=== PATIENT | male | born 1940 | race Caucasian/White ===

== ENCOUNTER 2022-10-12 19:59 | Inpatient (IN) | payer MEDICARE ==
[~2022-10-12] VITALS: Ht 177.8 cm; Wt 80.3 kg
[2022-10-12 20:57] LABS: BASOPHILS # (AUTO) 0.1 (0.0-0.1); BASOPHILS % 0.9 % (0.0-1.0); EOSINOPHILS # (AUTO) 0.2 (0.0-0.4); EOSINOPHILS % 2.6 % (0.0-6.0); HEMATOCRIT 41.9 % (38.2-49.6); LYMPHOCYTES # (AUTO) 1.5 (1.0-3.2); LYMPHOCYTES % 18.8 % (18.0-39.1); MEAN CORPUSCULAR HEMOGLOBIN 32.5 pg (28-32); MEAN CORPUSCULAR HGB CONC 33.4 g/dL (31-35); MEAN CORPUSCULAR VOLUME 97.2 fL (81-99); MONOCYTES % 12.5 % (4.4-11.3); NEUTROPHILS % 64.4 % (38.7-80.0); PLATELET COUNT 199 x10e3/uL (140-360); RED BLOOD COUNT 4.31 x10e6/uL (4.3-5.7); RED CELL DISTRIBUTION WIDTH 13.7 % (11.7-14.4)
[2022-10-12 21:06] LABS: INR 0.88; PROTHROMBIN TIME 12.4 seconds (11.9-14.5)
[2022-10-12 21:07] LABS: PARTIAL THROMBOPLASTIN TIME 31.3 seconds (23.8-35.5)
[2022-10-12 21:15] LABS: ALBUMIN 3.8 g/dL (3.5-5.0); ALBUMIN/GLOBULIN RATIO 1.3 (0.8-2.0); ANION GAP 15.3 mmol/L (8-16); CALCIUM 8.6 mg/dL (8.4-10.2); CREATININE, SERUM 0.96 mg/dL (0.72-1.25); POTASSIUM 4.3 mmol/L (3.5-5.1)
[2022-10-12] MEDS ORDERED: ONDANSETRON HCL INJ 2MG/ML 2ML 2 MG/ML VIAL IV PRN (22:45)
[2022-10-12] MEDS ORDERED: SODIUM CHLORIDE FLUSH 10 ML SYR INJ PRN (22:45)
[2022-10-12] MEDS: FUROSEMIDE INJ 10 MG/ML 4 ML VIAL IV SCH (23:00)
[2022-10-12 23:50] VITALS: BP 144/59
[2022-10-12 23:55] VITALS: BP 144/59
[2022-10-13] VITALS (7 sets, daily range): BP systolic 118–144; BP diastolic 45–67
[2022-10-13] MEDS ORDERED: LEVOCETIRIZINE D5 MG PO (00:12)
[2022-10-13] MEDS ORDERED: DONEPEZIL HCL10 MG PO (00:12)
[2022-10-13] MEDS ORDERED: HYDROXYZINE HCL25 MG PO (00:12)
[2022-10-13] MEDS ORDERED: PRAVASTATIN SOD40 MG PO (00:12)
[2022-10-13] MEDS ORDERED: CEPHALEXIN500 MG PO (00:12)
[2022-10-13 06:41] LABS: BASOPHILS # (AUTO) 0.1 (0.0-0.1); BASOPHILS % 0.9 % (0.0-1.0); EOSINOPHILS # (AUTO) 0.3 (0.0-0.4); EOSINOPHILS % 4.1 % (0.0-6.0); HEMATOCRIT 41.2 % (38.2-49.6); HEMOGLOBIN 13.8 g/dL (14.0-18.0); LYMPHOCYTES # (AUTO) 1.4 (1.0-3.2); LYMPHOCYTES % 19.5 % (18.0-39.1); MEAN CORPUSCULAR HEMOGLOBIN 32.8 pg (28-32); MEAN CORPUSCULAR HGB CONC 33.5 g/dL (31-35); MEAN CORPUSCULAR VOLUME 97.9 fL (81-99); MONOCYTES # (AUTO) 1.2 (0.2-0.8); NEUTROPHILS # (AUTO) 4.4 (2.1-6.9); PLATELET COUNT 188 x10e3/uL (140-360); RED BLOOD COUNT 4.21 x10e6/uL (4.3-5.7); RED CELL DISTRIBUTION WIDTH 13.8 % (11.7-14.4)
[2022-10-13] MEDS ORDERED: CEPHALEXIN 500 MG CAP PO SCH (07:00)
[2022-10-13 07:19] LABS: ALBUMIN 3.5 g/dL (3.5-5.0); ALBUMIN/GLOBULIN RATIO 1.3 (0.8-2.0); ANION GAP 12.1 mmol/L (8-16); CALCIUM 8.5 mg/dL (8.4-10.2); CREATININE, SERUM 0.89 mg/dL (0.72-1.25); POTASSIUM 4.1 mmol/L (3.5-5.1)
[2022-10-13] MEDS: FUROSEMIDE INJ 10 MG/ML 4 ML VIAL IV SCH ×2 (08:52→22:02)
[2022-10-13] MEDS ORDERED: DIPHENHYDRAMINE HCL 25 MG CAP PO PRN (13:30)
[2022-10-13] MEDS ORDERED: BENZONATATE 100 MG CAP PO PRN (13:30)
[2022-10-13] MEDS ORDERED: TRAMADOL HCL 50 MG TAB PO PRN (13:30)
[2022-10-13] MEDS ORDERED: ALBUTEROL/IPRATROPIUM 3 ML NEB NEB PRN (13:30)
[2022-10-13] MEDS ORDERED: SIMETHICONE 80 MG CHEW PO PRN (13:30)
[2022-10-13] MEDS ORDERED: HYDRALAZINE HCL 20 MG/ML VIAL IV PRN (13:30)
[2022-10-13] MEDS ORDERED: MELATONIN 5 MG TABLET PO PRN (13:30)
[2022-10-13] MEDS ORDERED: LIDOCAINE 4% PATCH TP PRN (13:30)
[2022-10-13] MEDS ORDERED: DEXTROSE 50% SYRINGE 50 ML IV PRN (13:30)
[2022-10-13] MEDS ORDERED: ACETAMINOPHEN 325 MG TAB PO PRN (13:30)
[2022-10-13] MEDS ORDERED: DOCUSATE SODIUM 100 MG CAP PO PRN (13:30)
[2022-10-13] MEDS ORDERED: POTASSIUM CHLORIDE 20 MEQ TAB CR PO PRN (13:30)
[2022-10-13] MEDS: ENOXAPARIN SOD INJ 40 MG/0.4 ML SYR SC SCH (17:18)
[2022-10-13] MEDS: PRAVASTATIN 20 MG TAB PO SCH (22:02)
[2022-10-14] VITALS (8 sets, daily range): BP systolic 108–133; BP diastolic 44–60
[2022-10-14 06:15] LABS: BASOPHILS # (AUTO) 0.1 (0.0-0.1); BASOPHILS % 0.9 % (0.0-1.0); EOSINOPHILS # (AUTO) 0.2 (0.0-0.4); EOSINOPHILS % 3.5 % (0.0-6.0); HEMATOCRIT 41.7 % (38.2-49.6); LYMPHOCYTES # (AUTO) 1.5 (1.0-3.2); LYMPHOCYTES % 22.5 % (18.0-39.1); MEAN CORPUSCULAR HEMOGLOBIN 32.4 pg (28-32); MEAN CORPUSCULAR HGB CONC 33.6 g/dL (31-35); MEAN CORPUSCULAR VOLUME 96.5 fL (81-99); MONOCYTES # (AUTO) 0.9 (0.2-0.8); MONOCYTES % 14.1 % (4.4-11.3); NEUTROPHILS # (AUTO) 3.9 (2.1-6.9); NEUTROPHILS % 58.2 % (38.7-80.0); PLATELET COUNT 199 x10e3/uL (140-360); RED BLOOD COUNT 4.32 x10e6/uL (4.3-5.7); RED CELL DISTRIBUTION WIDTH 13.6 % (11.7-14.4)
[2022-10-14 06:32] LABS: ANION GAP 15.6 mmol/L (8-16); CALCIUM 8.3 mg/dL (8.4-10.2); CHOL/HDL RATIO 3.5 (3.9-4.7); CREATININE, SERUM 1.13 mg/dL (0.72-1.25); MAGNESIUM 1.9 MG/DL (1.3-2.1); PHOSPHORUS 3.3 MG/DL (2.3-4.7); POTASSIUM 3.6 mmol/L (3.5-5.1)
[2022-10-14 06:56] LABS: THYROID STIMULATING HORMONE 20.586 uIU/mL (0.350-4.940)
[2022-10-14] MEDS: FUROSEMIDE INJ 10 MG/ML 4 ML VIAL IV SCH ×2 (08:51→14:30)
[2022-10-14] MEDS: DONEPEZIL HCL 5 MG TAB PO SCH (08:52)
[2022-10-14] MEDS: PANTOPRAZOLE SOD 40 MG TABEC PO SCH (08:52)
[2022-10-14] MEDS ORDERED: FLOMAX0.4 MG PO (15:42)
[2022-10-14] MEDS: ENOXAPARIN SOD INJ 40 MG/0.4 ML SYR SC SCH (17:02)
[2022-10-14] MEDS: MUPIROCIN 2% OINT 22 GM TUBE TOP SCH (17:26)
[2022-10-14] MEDS: PRAVASTATIN 20 MG TAB PO SCH (23:01)
[2022-10-15] VITALS (7 sets, daily range): BP systolic 111–136; BP diastolic 58–66
[2022-10-15] MEDS ORDERED: LEVOTHYROXINE SODIUM 75 MCG TAB PO SCH (06:00)
[2022-10-15] MEDS ORDERED: TAMSULOSIN HCL 0.4 MG CAP PO SCH (09:00)
[2022-10-15] MEDS: PANTOPRAZOLE SOD 40 MG TABEC PO SCH (09:06)
[2022-10-15] MEDS: FUROSEMIDE INJ 10 MG/ML 4 ML VIAL IV SCH (09:06)
[2022-10-15] MEDS: DONEPEZIL HCL 5 MG TAB PO SCH (09:06)
[2022-10-15] MEDS: MUPIROCIN 2% OINT 22 GM TUBE TOP SCH ×2 (09:07→17:10)
[2022-10-15] MEDS ORDERED: ONDANSETRON HCL 4 MG ORAL DISINTEGRATING TAB PO PRN (13:30)
[2022-10-15] MEDS ORDERED: SYNTHROID75 MCG PO (14:36)
[2022-10-15] MEDS ORDERED: DOXYCYCLINE HY100 MG PO (14:38)
[2022-10-15] MEDS: ENOXAPARIN SOD INJ 40 MG/0.4 ML SYR SC SCH (17:09)
[2022-10-16] MEDS ORDERED: BALSAM PERU/CASTOR OIL 60 GM OINT...G. TP SCH (09:00)
== END 2022-10-15 20:13 | disposition home or self-care (01) | DRG 603 ==
LOC: ER 20:10 → ERHOLD 22:41 → MED/SURG2 23:36 → OBSVTOIN 10-15 09:08
PROVIDERS: ADMIT Internal Medicine; ATTEND Internal Medicine
DX: L03.116 Cellulitis of left lower limb (principal); L03.115 Cellulitis of right lower limb; Z20.822 Contact with and (suspected) exposure to COVID-19; E78.5 Hyperlipidemia, unspecified; G30.9 Alzheimer's disease, unspecified; F02.80 Dementia in other diseases classified elsewhere, unspecified severity, without behavioral disturbance, psychotic disturbance, mood disturbance, and anxiety; B35.1 Tinea unguium
CPT/HCPCS: 36415; 80048; 80053; 80061; 83036; 83735; 83880; 84100; 84443; 85025; 85610; 85730; 93970; 94799; 99252; 99284; G0378; J0295; J0696; J1650; J1940